=== PATIENT | female | born 1980 | race Caucasian/White ===

== ENCOUNTER → 2020-05-04 | Outpatient (REF) | payer OTHER | LOC: M LAB 15:20 | PROVIDERS: ATTEND Nurse Practitioner Adult Health | DX: Z00.00 Encounter for general adult medical examination without abnormal findings (principal) ==

== ENCOUNTER → 2020-06-15 | Outpatient (CLI) | payer OTHER ==
[2020-06-15 14:23] LABS: HEMATOCRIT 40.4 % (36.0-47.0); HEMOGLOBIN 13.5 g/dl (12.0-15.5); MEAN CORPUSCULAR HEMOGLOBIN 32.8 pg (27.0-33.0); MEAN CORPUSCULAR HGB CONC 33.4 g/dl (32.0-36.5); MEAN CORPUSCULAR VOLUME 98.1 fl (80.0-96.0); PLATELET COUNT, AUTOMATED 320 10^3/uL (150-450); RED BLOOD COUNT 4.12 10^6/uL (4.00-5.40); WHITE BLOOD COUNT 8.6 10^3/uL (4.0-10.0)
[2020-06-15 14:38] LABS: ALT/SGPT 24 U/L (12-78); BILIRUBIN,TOTAL 0.3 MG/DL (0.2-1.0); BLOOD UREA NITROGEN 13 MG/DL (7-18); CALCIUM LEVEL 8.8 MG/DL (8.5-10.1); CARBON DIOXIDE LEVEL 25 MEQ/L (21-32); CHLORIDE LEVEL 112 MEQ/L (98-107); CHOLESTEROL LEVEL 176 MG/DL (<200); CHOLESTEROL RISK RATIO 3.142 (<5); CREATININE FOR GFR 0.66 MG/DL (0.55-1.30); FREE T4 0.73 NG/DL (0.76-1.46); GLOMERULAR FILTRATION RATE > 60.0 (>60); GLUCOSE, FASTING 88 MG/DL (70-100); HDL CHOLESTEROL 56 MG/DL (>40); LDL CHOLESTEROL 109 MG/DL (<100); NON-HDL-C 120 MG/DL; POTASSIUM SERUM 4.6 MEQ/L (3.5-5.1); SODIUM LEVEL 140 MEQ/L (136-145); TOTAL PROTEIN 7.2 GM/DL (6.4-8.2); TRIGLYCERIDES LEVEL 55 MG/DL (<150)
[2020-06-22 10:25] LABS: THYROID PEROXIDASE ANTIBODY 88.8 U/ML (<60.0)
--- NOTE | 2020-06-23 16:41 | REPPI ---
LEFT HIP X-RAY: CLINICAL: Left hip pain. TECHNIQUE: Neutral and frog lateral views of the left hip. FINDINGS: No acute fracture or dislocation. No significant degenerative changes. No periarticular calcifications or loose bodies. Surrounding soft tissues are normal. IMPRESSION: Normal age appropriate left hip radiographs. MTDD
== END ==
LOC: M PLAIMG 09:51
PROVIDERS: ATTEND Physician Assistant
DX: Z00.00 Encounter for general adult medical examination without abnormal findings (principal); Z13.220 Encounter for screening for lipoid disorders; E04.9 Nontoxic goiter, unspecified; M25.552 Pain in left hip

== ENCOUNTER → 2020-06-16 | Outpatient (CLI) | payer OTHER ==
--- NOTE | 2020-06-23 16:42 | REP ---
THYROID ULTRASOUND CLINICAL: Goiter. TECHNIQUE: Real-time duncan scale and color evaluation using linear high frequency transducer. FINDINGS: The thyroid gland is minimally enlarged and essentially normal in contour and parenchymal echotexture. Right lobe measures 5.0 x 1.8 x 1.8 cm. Isthmus measures 3.7 mm in width. Left lobe measures 4.8 x 1.4 x 1.4 cm. A 2-mm incidental cyst in the lower pole of the right lobe is identified and essentially nonspecific/benign in appearance. IMPRESSION: Thyroid gland is essentially normal in appearance and minimally upper limits of normal in size. MTDD
== END ==
LOC: M RAD 09:25
PROVIDERS: ATTEND Physician Assistant
DX: E04.9 Nontoxic goiter, unspecified (principal)

== ENCOUNTER → 2020-11-13 | Outpatient (REF) | LOC: M LABSMTC 13:53 | PROVIDERS: ATTEND Pediatrics | DX: Z20.822 Contact with and (suspected) exposure to COVID-19 (principal) ==